=== PATIENT | male | born 1980 | race Caucasian/White ===

== ENCOUNTER 2025-03-29 19:43 | Emergency (ER) | payer SELFPAY ==
[~2025-03-29] VITALS: Ht 193 cm; Wt 93.0 kg
[2025-03-29] MEDS: IV NS 0.9% 1,000 ML BAG IV ONE (20:15)
[2025-03-29] MEDS ORDERED: MORPHINE SULFATE INJ 4 MG/ML DISP.SYRIN ONE ×2 (20:16→21:34)
[2025-03-29] MEDS ORDERED: ONDANSETRON HCL/PF 4 MG/2 ML VIAL ONE (20:16)
[2025-03-29 20:31] LABS: PLATELET COUNT (AUTO) 429 K/uL (150-450); RED BLOOD CELL COUNT(AUTO) 4.94 MIL/uL (4.5-6.0); RED CELL DISTRIBUTION WIDTH 21.5 % (11.5-15.0); WHITE BLOOD COUNT (AUTO) 10.8 K/uL (4.3-11.0)
[2025-03-29] MEDS: ONDANSETRON HCL/PF 4 MG/2 ML VIAL IVP ONE (20:33)
[2025-03-29] MEDS: MORPHINE SULFATE INJ 2 MG/ML DISP.SYRIN IV ONE ×2 (20:33→21:41)
[2025-03-29 21:28] LABS: EOSINOPHILS % (MANUAL) 1 % (0-4); LYMPHOCYTES % (MANUAL) 20 % (16-48); MONOCYTES % (MANUAL) 4 % (0-11.0); NEUTROPHILS % (MANUAL) 75 (42-76)
[2025-03-29 21:29] LABS: PLATELET ESTIMATE ADEQU
[2025-03-29] MEDS ORDERED: KETOROLAC TROMETHAMINE 15 MG/ML VIAL ONE (21:34)
[2025-03-29] MEDS ORDERED: NALO4SPR BNOSTRILS (21:37)
[2025-03-29] MEDS ORDERED: HYDR-3980 PO (21:37)
[2025-03-29] MEDS ORDERED: NAPR-1164 PO (21:37)
[2025-03-29] MEDS ORDERED: TAMS-12 PO (21:37)
[2025-03-29] MEDS: KETOROLAC TROMETHAMINE 15 MG/ML VIAL IV ONE (21:41)
[2025-03-29 21:43] LABS: CREATININE 1.4 mg/dL (0.6-1.3); TOTAL PROTEIN, SERUM 8.2 g/dL (6.4-8.2); UREA NITROGEN, BLOOD 15.0 mg/dL (7-18)
[2025-03-29 21:44] LABS: ASPARTATE AMINOTRANSFERASE 13.0 U/L (15-37); CALCIUM, SERUM 9.0 mg/dL (8.5-10.1)
[2025-03-29 21:45] LABS: SODIUM SERUM 141.0 mmol/L (136-145)
[2025-03-29 22:06] VITALS: BP 134/62; TEMP 98.1; O2SAT 100
== END 2025-03-29 22:07 | disposition home or self-care (01) ==
LOC: ER 19:45
DX: N20.1 Calculus of ureter (principal)
CPT/HCPCS: 99285; 74176; 96374; 96361; 96375; 96376; 85027; 80048; 83690; 80076; 85007; 36415; J1885; J2270 ×2; J2405; J7030